=== PATIENT | female | born 2000 | race Caucasian/White ===

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

== ENCOUNTER 2019-05-01 17:40 | Emergency (ER) | payer SELFPAY | END 2019-05-01 18:39 | disposition home or self-care (01) | LOC: ERS 17:40 | DX: N94.89 Other specified conditions associated with female genital organs and menstrual cycle (principal) | CPT/HCPCS: 99283 ==

== ENCOUNTER 2019-08-08 18:05 | Emergency (ER) | payer OTHER, SELFPAY | END 2019-08-08 18:19 | disposition home or self-care (01) | LOC: ERS 18:05 | DX: B34.9 Viral infection, unspecified (principal); F17.290 Nicotine dependence, other tobacco product, uncomplicated | CPT/HCPCS: 99283 ==

== ENCOUNTER 2019-11-01 21:07 | Emergency (ER) | payer MEDICAID, OTHER ==
[2019-11-01 22:38] LABS: Bacteria/HPF None Seen HPF (None Seen); Bilirubin Negative (Negative); Blood, Urine Negative (Negative); Clarity Clear (Clear); Glucose, Urine (Dipstick) Normal (Negative); Leukocyte Negative Leu/uL (Negative); Nitrite Negative (Negative); Protein, Urine (Dipstick) 10 mg/dL (Neg-Trace); RBC/HPF 0-3 HPF (0-3); Urobilinogen Normal mg/dL (Less than 2); WBC/HPF 0-3 HPF (0-3)
[2019-11-01 22:39] LABS: Urine Culture Reflex No No
[2019-11-01 23:36] LABS: #Monocytes 0.7 thou/uL (0.11-0.59); #Neutrophils 4.7 thou/uL (1.40-6.50); %Basophils 0.6 % (0.0-1.0); %Eosinophils 0.2 % (0.0-10.0); %Lymphocytes 15.2 % (28.0-48.0); %Monocytes 11.4 % (0.0-4.0); %Neutrophils 72.6 % (31.0-61.0); Hemoglobin 12.6 g/dL (12.0-16.0); Mean Corpuscular HGB CONC 35.5 g/dL (32.0-36.0); Mean Corpuscular Hemoglobin 32.4 pg (25.0-35.0); Mean Corpuscular Volume 91.3 fL (78.0-98.0); Mean Platelet Volume 7.4 fL (7.4-10.4); Platelet Count 204 thou/uL (130-400); RBC Distribution Width 11.4 % (11.5-14.5); Red Blood Cell (RBC) Count 3.89 mill/uL (4.00-5.20); White Blood Cell (WBC) Count 6.4 thou/uL (4.8-10.8)
--- NOTE | 2019-11-02 06:56 | ULT ---
PELVIC ULTRASOUND: HISTORY: Pelvic pain. FINDINGS: Rela-time imaging of the pelvis shows a single viable intrauterine . Ferry to rump length m easurements are 3.2 cm corresponding to 10 weeks 1 day. The placenta is difficult to assess at this stage. It appears somewhat low-lying. heart rate is 180 b.p.m. The right and left adnexa are normal in appearance. DOPPLER EVALUATION WITH SPECTRAL ANALYSIS: Normal flow is shown to the ovaries. IMPRESSION: Single viable intrauterine , crown to rump length measurements corresponding to 10 weeks 3 d ays. Placenta is somewhat low-lying. It is difficult to exclude previa at this stage of gestation. No subchorionic bleed is visualized. POS: [facility]
[2019-11-02 14:24] LABS: SARS-CoV-2 MS2 Positive; SARS-CoV-2 N Gene Positive; SARS-CoV-2 S Gene Positive; SARS-CoV-2 orf1ab Positive
== END 2019-11-02 00:17 | disposition home or self-care (01) ==
LOC: ERS 21:07
DX: O98.511 Other viral diseases complicating pregnancy, first trimester (principal); U07.1 COVID-19
CPT/HCPCS: 36415; 76856; 81001; 84702; 85025; 86900; 86901; 87635; 93976; U0003

== ENCOUNTER 2020-01-10 10:36 | Outpatient (CLI) | payer OTHER ==
--- NOTE | 2020-01-10 11:47 | ULT ---
EXAM: OB ultrasound COMPARISON: None HISTORY: female patient. Evaluate anatomy. TECHNIQUE: Multiplanar grayscale and color Doppler transabdominal sonographic images are obtained. FINDINGS: There is a single intrauterine gestation in breech presentation. Cardiac Doppler demonstrat es heart tones with a heart rate of 134 beats per minute. The placenta is located anteriorly, and the leading edge is borderline low-lying. A hypoechoic area is seen in the midportion of the placenta which does not demonstrate flow is likely related to venous dash or area of fibrin deposition. There is a normal amount of amniotic fluid with an amniotic fluid index of 11.98 centimet ers. The cervical length based on transabdominal imaging measures 2.93 centimeters. biometry measurements: BPD 4.93 cm -- 21 weeks HC 17.69 cm -- 20 weeks 2 days AC 15.63 cm -- 20 weeks 6 days FL 3.26 cm -- 20 weeks 2 days The estimated gestational age by ultrasound is 20 weeks 5 days with an ALIVIA on05/24/2020. Gestational a ge by the last menstrual period is 20 weeks 6 days. The estimated weight by ultrasound is 357 g (13 ounces). This represents 27 percentile for feta l weight. There is suggestion of a 4 chambered heart. The cerebellum, visualized portions of the spine, k idneys, urinary bladder, and cord insertion demonstrate a normal sonographic appearance. A three-vessel cord is not visualized, but there is flow on either side of the urinary bladder sugges ting a three-vessel cord.. No anomalies are seen. IMPRESSION: 1. The leading edge of the placenta is borderline low-lying. Follow-up evaluation in 4-6 weeks is rec ommended. 2. Single intrauterine gestation in cephalic presentation with heart tones documented. Estimat ed gestational age by ultrasound is 20 weeks 5 days with ALIVIA on 05/24/2020. 3. Estimated weight is 357 g (13 ounces). 4. Amniotic fluid index is 11.98 centimeters.
== END 2020-01-10 10:37 | disposition home or self-care (01) ==
LOC: BICULT 10:36
PROVIDERS: ATTEND Family Medicine
DX: Z34.02 Encounter for supervision of normal first pregnancy, second trimester (principal); O44.42 Low lying placenta NOS or without hemorrhage, second trimester; Z3A.20 20 weeks gestation of pregnancy
CPT/HCPCS: 76805

== ENCOUNTER 2020-02-26 07:15 | Inpatient (IN) | payer OTHER ==
[2020-02-26 07:46] VITALS: BMI 23.2
[2020-02-26] MEDS: Lactated Ringer's 1,000 ML IV SCH ×2 (08:00→17:01)
[2020-02-26] MEDS ORDERED: hydrALAZINE 20 MG/ML VIAL SLOW IVP PRN ×2 (08:31→08:52)
[2020-02-26] MEDS ORDERED: Sodium Chloride 0.9% 1,000 ML IV SCH (08:45)
[2020-02-26] MEDS ORDERED: Betamet Acet/Betamet Na Ph 30 MG/5 ML VIAL ONE (08:48)
[2020-02-26] MEDS ORDERED: Magnesium Sulfate 20 gm/500 ml 20 GM/500 ML BAG ONE (08:48)
[2020-02-26] MEDS ORDERED: Acetaminophen 500 MG TAB PO PRN (08:52)
[2020-02-26] MEDS ORDERED: Misoprostol 200 MCG TAB PR PRN (08:52)
[2020-02-26] MEDS ORDERED: Ibuprofen 800 MG TAB PO PRN (08:52)
[2020-02-26] MEDS ORDERED: Promethazine HCl 25 MG/ML VIAL IM PRN (08:52)
[2020-02-26] MEDS ORDERED: Lidocaine 1% (PF) 30 ML VIAL SC PRN (08:52)
[2020-02-26] MEDS ORDERED: Ondansetron PF 4 MG/2 ML Vial IVP PRN (08:52)
[2020-02-26] MEDS: Betamet Acet/Betamet Na Ph 30 MG/5 ML VIAL IM SCH (08:53)
[2020-02-26] MEDS ORDERED: Calcium Gluc 4.6 MEQ/10 ML (100 MG/ML) SLOW IVP PRN (08:55)
[2020-02-26] MEDS ORDERED: Penicillin G Potassium 5 MILL.UNITS VIAL ONE (08:57)
[2020-02-26] MEDS ORDERED: Penicillin G Potassium 5 MILL.UNITS in Sodium Chloride 0.9% 100 ML IVPB SCH (09:00)
[2020-02-26] MEDS ORDERED: Magnesium Sulfate 4 GM in Sodium Chloride 0.9% 250 ML 250 ML IVPB SCH (09:00)
--- NOTE | 2020-02-26 09:19 | PDOC.LDHP ---
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 Had filled a pantyliner with blood before deciding to come in, william blood currently apparent on perineum. She also has noticed sharp intermittent pain across her mid-abdomen that comes and goes since 02/24/20. Says when she sits down and rests this pain resolves. Patient works at [employer], denies any recent trauma and no heavy lifting with her occupation. Last sexual intercourse was about 1.5 months ago. Unsure of placenta location, says had ultrasound with Dr. Diaz 2 weeks ago and was told everything looked okay. He checked her cervix at that time and she says was told was not dilated and everything was good at that appointment. An ultrasound from 01/10/2020 shows placenta in anterior location that is borderline low-lying. Current gestational age (weeks): 27 (27.3 weeks) Due date: 05/24/20 Dating criteria: last menstrual period Grav: 1 Para: 0 OB History Details: Followed by Dr. Diaz currently (followed with Dr. Fox in 1st trimester). Denies any complications during this . Patient says no issues with HTN and passed her glucose tolerance test. Current complications: none Abnormal US findings: Yes (cervix completely effaced, vertex position, placenta anterior) Past Medical History: Denies Current medications: pre- vitamins Previous surgical history: none Allergies/Adverse Reactions: Allergies Allergy/AdvReac Type Severity Reaction Status Date / Time No Known Allergies Allergy Verified 02/26/20 07:41 Social history: none - Physical Exam Vital signs reviewed and normal: yes General: NAD, resting Lungs: nonlabored breathing Abdomen: NTTP (blood present on perineum) Extremeties: no edema FHT: category 1 [place] contractions every: 2-5 min - Vaginal Exam cm dilated: 4 (performed by Dr. Cohen) Effacement: 100% Station: 0 - OB Labs Blood type: unknown RH: unknown Antibody Screen: unknown HIV: unknown RPR: unknown HEPSAg: unknown 1 hour GCT: unknown GBS: unknown Urine drug screen: not done - Assessment L&D Assessment: labor - Plan Plan: admit to L&D -: Patient is a 19 yo at 27.3 wga who presents in labor: # Labor -currently 27.3 wga today with ALIVIA of 05/24/2020 -OB ultrasound today shows vertex presentation, cervix completely effaced, placenta anterior -start Magnesium -Betamethasone x 2 doses q24h, 1st dose given at 0900 -LR 1000 mL bolus, then 125/hr -continuous external monitoring -initial cervical check @ 0845 is 4/100/0 to -1 station, ctx every 2-4 min -consult Neonatology, Dr. Van for delivery anticipated -GBS status unknown, will start Penicillin for prophylaxis #COVID19 Status -Patient was COVID positive on 11/02/2019 -per hospital guidelines does not need to be re-tested with this admission Diet: NPO, ice chips okay VTE: none Code status: FULL Dispo: Stable, admit to L&D for labor management. Will notify OBGYN Dr. Diaz of admission. Addendum - Attending - Attending Attestation Date/Time: 02/26/20 0664 I personally evaluated the patient and discussed the management with Dr. Lopez. 19 yo G1 at 27.3 weeks c/o bleeding and pain. USG shows resolution of low lying placenta, unable to see cervical length, vtx, EFW 1000+ gms. SVE= 4/c/-1/0, BOWI. BMX given, repeat dose ordered, PCN and MgS04 started. Dr. Van and NICU made aware. Dr. Diaz notified. I agree with the History, Examination, Assessment and Plan documented above.
[2020-02-26 09:22] LABS: Hemoglobin 10.3 g/dL (12.0-16.0); Mean Corpuscular HGB CONC 33.4 g/dL (32.0-36.0); Mean Corpuscular Hemoglobin 29.6 pg (25.0-35.0); Mean Corpuscular Volume 88.7 fL (78.0-98.0); Mean Platelet Volume 7.3 fL (7.4-10.4); Platelet Count 256 thou/uL (130-400); RBC Distribution Width 11.7 % (11.5-14.5); Red Blood Cell (RBC) Count 3.48 mill/uL (4.00-5.20); White Blood Cell (WBC) Count 11.6 thou/uL (4.8-10.8)
[2020-02-26 10:01] LABS: HBSAg Index 0.19 S/CO (0-0.99); Hep B Surf Ag Non-Reactive S/CO (NonReactive); Syphilis Antibody Nonreactive (Nonreactive); Syphilis Antibody Index 0.07 S/CO (<1.00 Non-Reactive)
[2020-02-26 10:01] LABS: #Eosinphils 0.1 thou/uL (0.0-0.7); #Lymphocytes 2.5 thou/uL (1.20-3.40); #Monocytes 0.7 thou/uL (0.11-0.59); #Neutrophils 8.4 thou/uL (1.40-6.50); %Basophils 0.3 % (0.0-1.0); %Eosinophils 0.8 % (0.0-10.0); %Lymphocytes 21.6 % (28.0-48.0); %Monocytes 5.8 % (0.0-4.0); %Neutrophils 71.5 % (31.0-61.0); Hemoglobin 10.2 g/dL (12.0-16.0); Mean Corpuscular HGB CONC 33.7 g/dL (32.0-36.0); Mean Corpuscular Hemoglobin 30.2 pg (25.0-35.0); Mean Corpuscular Volume 89.5 fL (78.0-98.0); Mean Platelet Volume 6.7 fL (7.4-10.4); Platelet Count 248 thou/uL (130-400); RBC Distribution Width 11.7 % (11.5-14.5); Red Blood Cell (RBC) Count 3.37 mill/uL (4.00-5.20); White Blood Cell (WBC) Count 11.8 thou/uL (4.8-10.8)
--- NOTE | 2020-02-26 12:35 | ULT ---
LIMITED OB ULTRASOUND: DATE: 02/26/2020. PROVIDED CLINICAL HISTORY: Vaginal bleeding, assess cervical length. FINDINGS: Comparison is made with the study dated 01/10/2020. A single live intrauterine gestation is documented in vertex presentation with heart rate of 149 b.p.m. documented. Estimated gestational age ba sed on today's examination is 27 weeks 0 days. Estimated weight is 1029 +/- [address] nta appears anteriorly located without evidence for previa. The head is very low-lying within the uterus, likely within the cervix as the cervix is not discretely identified translabially or hodgson sabdominally. Biometry: BPD 27 weeks 0 days, 6.71 cm Head circumference 27 weeks 1 day, 25 cm Abdominal circumference 27 weeks 4 days, 23.3 cm Femur length 26 weeks 3 days, 4.9 cm IMPRESSION: Single live intrauterine gestation as described. The head appears to be within the cervical ca nal. POS: MIKE
[2020-02-26] MEDS: Penicillin G 2.5 MILL.units 2.5 MILL.UNITS in Premix Bag 1 BAG IVPB SCH ×3 (13:06→21:20)
[2020-02-26] MEDS ORDERED: FLU VACC QS2020-21(6MOS UP)/PF 60 MCG/0.5 ML SYRINGE IM ONE (18:00)
[2020-02-26] MEDS: Butorphanol Tartrate 1 MG/ML VIAL SLOW IVP PRN (23:05)
[2020-02-27] MEDS: Azithromycin 500 MG in Sodium Chloride 0.9% 250 ML 250 ML IVPB SCH (01:00)
[2020-02-27] MEDS: Magnesium Sulfate 20 gm/500 ml 20 GM/500 ML BAG IVPB SCH ×2 (06:00→17:20)
[2020-02-27] MEDS: Ampicillin 2 GM in Sodium Chloride 0.9% 100 ML IVPB SCH ×4 (06:00→17:58)
[2020-02-27] MEDS: Betamet Acet/Betamet Na Ph 30 MG/5 ML VIAL IM SCH (08:55)
[2020-02-27] MEDS: Lactated Ringer's 1,000 ML IV SCH ×2 (10:04→17:20)
[2020-02-27] MEDS: Butorphanol Tartrate 1 MG/ML VIAL SLOW IVP PRN ×2 (15:49→23:24)
[2020-02-28] MEDS: Ampicillin 2 GM in Sodium Chloride 0.9% 100 ML IVPB SCH ×4 (00:04→23:15)
[2020-02-28] MEDS: Lactated Ringer's 1,000 ML IV SCH ×4 (00:04→23:16)
[2020-02-28] MEDS: Azithromycin 500 MG in Sodium Chloride 0.9% 250 ML 250 ML IVPB SCH (01:00)
[2020-02-28] MEDS: Butorphanol Tartrate 1 MG/ML VIAL SLOW IVP PRN ×2 (04:32→18:35)
[2020-02-28] MEDS: Magnesium Sulfate 20 gm/500 ml 20 GM/500 ML BAG IVPB SCH (08:40)
[2020-02-28] MEDS ORDERED: Acetaminophen 650 MG/20.3 ML UDCUP PO PRN (10:00)
[2020-02-28] MEDS ORDERED: Sodium Chloride 0.9% 10 ML ONE (10:11)
[2020-02-28] MEDS ORDERED: Misoprostol 200 MCG TAB ONE ×3 (18:25)
[2020-02-28] MEDS: NS / Oxytocin 40 units/1000ml 1,000 ML IV PRN ×2 (18:51→19:20)
[2020-02-28] MEDS ORDERED: Lanolin Ointment 7 GM TUBE TOP PRN (23:09)
[2020-02-28] MEDS ORDERED: Milk Of Magnesia 30 ML UDCUP PO PRN (23:09)
[2020-02-28] MEDS ORDERED: Preparation H Ointment 28 GM TUBE PR PRN (23:09)
[2020-02-28] MEDS ORDERED: NS / Oxytocin 40 units/1000ml 1,000 ML IV SCH (23:09)
[2020-02-28] MEDS ORDERED: Benzocaine-Menthol 82.5 ML CAN TOP PRN (23:09)
[2020-02-28] MEDS ORDERED: Methylergonovine 0.2 MG/ML VIAL IM PRN (23:09)
[2020-02-28] MEDS ORDERED: Promethazine HCl 25 MG/ML VIAL IM PRN (23:09)
[2020-02-28] MEDS ORDERED: diphenhydrAMINE 25 MG CAP PO PRN (23:09)
[2020-02-28] MEDS ORDERED: Bisacodyl 10 MG SUPP PR PRN (23:09)
[2020-02-28] MEDS ORDERED: HYDROcodone/Acetaminophen 5/325 mg Tablet PO PRN ×2 (23:09)
[2020-02-28] MEDS ORDERED: Ondansetron PF 4 MG/2 ML Vial IVP PRN (23:09)
[2020-02-28] MEDS ORDERED: Zolpidem Tartrate 5 MG TAB PO PRN (23:09)
[2020-02-28] MEDS ORDERED: hydrALAZINE 20 MG/ML VIAL SLOW IVP PRN (23:09)
[2020-02-29] MEDS: Ibuprofen 800 MG TAB PO SCH ×3 (05:30→21:03)
[2020-02-29 05:55] LABS: Hemoglobin 7.9 g/dL (12.0-16.0); Mean Corpuscular HGB CONC 33.2 g/dL (32.0-36.0); Mean Corpuscular Hemoglobin 30.2 pg (25.0-35.0); Mean Corpuscular Volume 91.1 fL (78.0-98.0); Platelet Count 214 thou/uL (130-400); RBC Distribution Width 11.8 % (11.5-14.5); Red Blood Cell (RBC) Count 2.63 mill/uL (4.00-5.20); White Blood Cell (WBC) Count 10.9 thou/uL (4.8-10.8)
[2020-02-29] MEDS: Docusate Calcium (SURFAK) 240 MG CAP PO SCH ×2 (08:17→21:03)
[2020-02-29] MEDS: Prenatal Vitamin 1 TAB PO SCH (08:18)
[2020-02-29] MEDS: Ferrous Sulfate 325 MG TAB PO SCH ×2 (08:18→17:10)
[2020-02-29] MEDS ORDERED: Adacel (T-DAP) 0.5 ML SYRINGE IM ONE (09:00)
[2020-02-29] MEDS ORDERED: Varicella virus, LIVE 0.5 ML VIAL SC ONE (09:00)
[2020-02-29] MEDS ORDERED: Measles/Mumps/Rubella 10 MCG/0.5 ML VIAL SC ONE (09:00)
[2020-02-29 15:33] LABS: HIV (1/2) Antibody/Antigen Non-Reactive (NonReactive); HIV 1/2 INDEX 0.11 S/CO (<1.00)
[2020-03-01] MEDS: Ibuprofen 800 MG TAB PO SCH ×2 (05:25→14:53)
[2020-03-01] MEDS: Ferrous Sulfate 325 MG TAB PO SCH ×2 (08:10→17:01)
[2020-03-01] MEDS: Prenatal Vitamin 1 TAB PO SCH (08:10)
[2020-03-01] MEDS: Docusate Calcium (SURFAK) 240 MG CAP PO SCH ×2 (08:10→20:07)
--- NOTE | 2020-03-01 19:00 | PDOC.PP ---
Post Progress Note Post Day #: 1 PO intake tolerated: yes Flatus: yes Ambulation: yes Vital Signs (12 hours) Temp Pulse Resp BP Pulse Ox 03/01/20 07:59 98.5 F 65 16 100/60 99 Weight Weight 115 lb - Physical Examination General: NAD Cardiovascular: no m/r/g, RRR Respiratory: clear to auscultation bilaterally, non-labored breathing Abdominal: + bowel sounds, lochia, no distention, appropriately TTP Extremities: negative homans (B) Skin: CS incision dry & intact, no rash Neurological: no gross focal deficits Psychiatric: A&Ox3, normal affect Result Diagrams: 02/29/20 05:37 Additional Labs: Post Labs Hep Bs Antigen Non-Reactive S/CO (NonReactive) 02/26/20 08:56 Rubella IgG Antibody Less than 0.90 index (Immune >0.99) L 02/29/20 05:37 Blood Type O POSITIVE 02/26/20 08:56
--- NOTE | 2020-03-01 19:01 | PDOC.PP ---
Post Progress Note Post Day #: 1 PO intake tolerated: yes Flatus: yes Ambulation: yes Vital Signs (12 hours) Temp Pulse Resp BP Pulse Ox 03/01/20 07:59 98.5 F 65 16 100/60 99 Weight Weight 115 lb - Physical Examination General: NAD Cardiovascular: no m/r/g, RRR Respiratory: clear to auscultation bilaterally, non-labored breathing Abdominal: + bowel sounds, lochia, no distention Extremities: negative homans (B) Neurological: no gross focal deficits Psychiatric: A&Ox3, normal affect (Vitals stable, despite anemia. Will DC to boarding.) Result Diagrams: 02/29/20 05:37 Additional Labs: Post Labs Hep Bs Antigen Non-Reactive S/CO (NonReactive) 02/26/20 08:56 Rubella IgG Antibody Less than 0.90 index (Immune >0.99) L 02/29/20 05:37 Blood Type O POSITIVE 02/26/20 08:56
[2020-03-01 20:10] VITALS: BP 117/62; TEMP 98.9
== END 2020-03-01 20:20 | disposition home or self-care (01) | DRG 805 ==
LOC: L&D/OP 07:15 → L&D 09:38 → 3SW 02-28 22:02
PROVIDERS: ADMIT Obstetrics & Gynecology; ATTEND Obstetrics & Gynecology
PROC: 10E0XZZ Delivery of Products of Conception, External Approach (ICD-10-PCS; principal; 2020-02-28)
PROC: 3E02340 Introduction of Influenza Vaccine into Muscle, Percutaneous Approach (ICD-10-PCS; 2020-02-28)
DX: O44.52 Low lying placenta with hemorrhage, second trimester (principal); O60.12X0 Preterm labor second trimester with preterm delivery second trimester, not applicable or unspecified; Z37.0 Single live birth; Z3A.27 27 weeks gestation of pregnancy; Z86.19 Personal history of other infectious and parasitic diseases; Z23 Encounter for immunization
CPT/HCPCS: 36415; 51702; 76815; 83735; 85027; 86762; 86780; 86850; 86900; 86901; 87340; 87389; 88307; 90471; 90662; 90715; 99285; G0008; J0290; J0456; J0595; J0702; J2540; J3475; J3490; J7050

== ENCOUNTER 2020-03-18 18:11 | Emergency (ER) | payer OTHER ==
[2020-03-18] MEDS ORDERED: Ketorolac Tromethamine 30 MG/ML VIAL ONE (19:53)
== END 2020-03-18 21:00 | disposition home or self-care (01) ==
LOC: ERS 18:11
DX: T65.91XA Toxic effect of unspecified substance, accidental (unintentional), initial encounter (principal)
CPT/HCPCS: 96372; 99282; J1885

== ENCOUNTER 2020-05-10 13:24 | Emergency (ER) | payer OTHER ==
[2020-05-10 15:50] LABS: SARS-CoV-2 NAA Rapid Test Not Detected (NotDetected)
== END 2020-05-10 16:18 | disposition home or self-care (01) ==
LOC: ERS 13:24
DX: J06.9 Acute upper respiratory infection, unspecified (principal); Z20.828 Contact with and (suspected) exposure to other viral communicable diseases
CPT/HCPCS: 0240U; 99283

== ENCOUNTER 2020-09-17 17:36 | Emergency (ER) | payer MEDICAID, OTHER ==
[2020-09-17 19:29] LABS: Bacteria/HPF None Seen HPF (None Seen); Bilirubin Negative (Negative); Blood, Urine Negative (Negative); Clarity Clear (Clear); Glucose, Urine (Dipstick) Normal (Negative); Ketone, Urine Negative (Negative); Leukocyte 75 Leu/uL (Negative); Nitrite Negative (Negative); Pregnancy Test - Urine (BHCG) Negative (Negative); Pregu Control Background? CLEAR/WHITE (CLR/WHITE); Pregu Control Bar Appear? YES (CONTROL BAR); Protein, Urine (Dipstick) 10 mg/dL (Neg-Trace); RBC/HPF 0-3 HPF (0-3); Specific Gravity 1.022 (1.002-1.036); Specific Gravity, Urine 1.022 (1.002-1.036); Urobilinogen Normal mg/dL (Less than 2)
== END 2020-09-17 20:11 | disposition home or self-care (01) ==
LOC: ERS 17:36
DX: B34.9 Viral infection, unspecified (principal); R11.2 Nausea with vomiting, unspecified
CPT/HCPCS: 81003; 81015; 81025; 93005

== ENCOUNTER 2021-05-07 12:37 | Emergency (ER) | payer OTHER | END 2021-05-07 13:19 | disposition left against medical advice (07) | LOC: ERS 12:37 | DX: Z53.21 Procedure and treatment not carried out due to patient leaving prior to being seen by health care provider (principal) ==

== ENCOUNTER 2021-12-18 09:16 | Emergency (ER) | payer OTHER ==
[2021-12-18] MEDS ORDERED: Acetaminophen 325 MG TAB ONE (10:01)
== END 2021-12-18 11:55 | disposition home or self-care (01) ==
LOC: ERS 09:16
DX: M25.552 Pain in left hip (principal); F17.210 Nicotine dependence, cigarettes, uncomplicated; V89.0XXA Person injured in unspecified motor-vehicle accident, nontraffic, initial encounter; W22.11XA Striking against or struck by driver side automobile airbag, initial encounter; Y92.410 Unspecified street and highway as the place of occurrence of the external cause
CPT/HCPCS: 72170

== ENCOUNTER 2022-08-06 14:58 | Outpatient (CLI) | payer OTHER | END 2022-08-06 14:59 | disposition home or self-care (01) | LOC: ULT 14:58 | PROVIDERS: ATTEND Nurse Practitioner Family | DX: N93.9 Abnormal uterine and vaginal bleeding, unspecified (principal) | CPT/HCPCS: 76856; 93976 ==